=== PATIENT | male | born 1950 | race Two or more races ===

== ENCOUNTER 2022-09-02 16:36 | Emergency (ER) | payer OTHER ==
[~2022-09-02] VITALS: Ht 167.6 cm; Wt 68.0 kg
[2022-09-02] MEDS ORDERED: PANTOPRAZOLE SO40 M2 PO (17:03)
[2022-09-02] MEDS ORDERED: ZIAC 2.5-6.251 EACH (17:03)
== END 2022-09-02 16:56 | disposition home or self-care (01) ==
LOC: ER 16:36
DX: K62.5 Hemorrhage of anus and rectum (principal); Z88.0 Allergy status to penicillin